=== PATIENT | female | born 1960 | race Caucasian/White ===

== ENCOUNTER 2017-03-21 01:32 | Emergency (ER) | payer OTHER ==
[2017-03-21] MEDS: ONDANSETRON 4 MG INJ IV ×2 (02:52→05:03)
[2017-03-21] MEDS: HYDROmorphONE 1 MG/ML SYG IV ×2 (02:52→05:03)
[2017-03-21] MEDS: METHYLPRED. NA SUCC 250 MG in DEXTROSE 5% 50 ML IV (03:21)
== END 2017-03-21 05:12 | disposition home or self-care (01) ==
LOC: E/R 01:32
DX: G56.02 Carpal tunnel syndrome, left upper limb (principal); I10 Essential (primary) hypertension; E11.9 Type 2 diabetes mellitus without complications; Z79.82 Long term (current) use of aspirin; Z79.84 Long term (current) use of oral hypoglycemic drugs
CPT/HCPCS: 29125; 93005; 96374; 96375; 96376; 99284-25

== ENCOUNTER 2017-04-03 18:34 | Emergency (ER) | payer OTHER ==
[2017-04-03] MEDS ORDERED: KETOROLAC 30 MG INJ (22:41)
[2017-04-03] MEDS: KETOROLAC 30 MG INJ IM (22:45)
[2017-04-03 22:46] LABS: URINE PH (Dip) POC 5.5 (5.0-8.5)
[2017-04-03 22:46] LABS: URINE BLOOD (Dip) POC Negative (NEGATIVE); URINE GLUCOSE (Dip) POC Negative (NEGATIVE); URINE KETONES (Dip) POC Trace (NEGATIVE); URINE LEUKOCYTE EST (Dip) POC Negative (NEGATIVE); URINE NITRITE (Dip) POC Negative (NEGATIVE); URINE TOTAL PROTEIN POC Negative (NEGATIVE)
== END 2017-04-04 00:13 | disposition home or self-care (01) ==
LOC: FTE 04-04 00:13
DX: G44.209 Tension-type headache, unspecified, not intractable (principal); I10 Essential (primary) hypertension; E11.9 Type 2 diabetes mellitus without complications; Z79.82 Long term (current) use of aspirin; Z79.4 Long term (current) use of insulin
CPT/HCPCS: 81003; 96372; 99284-25

== ENCOUNTER 2017-05-10 18:45 | Emergency (ER) | payer OTHER ==
[2017-05-10] MEDS: IBUPROFEN 600 MG TAB PO (23:36)
== END 2017-05-10 23:38 | disposition home or self-care (01) ==
LOC: FTE 18:45
DX: G62.9 Polyneuropathy, unspecified (principal); E11.9 Type 2 diabetes mellitus without complications; I10 Essential (primary) hypertension; Z79.4 Long term (current) use of insulin; Z79.82 Long term (current) use of aspirin
CPT/HCPCS: 82962; 99282

== ENCOUNTER 2017-06-06 19:01 | Emergency (ER) | payer OTHER | END 2017-06-06 19:47 | disposition home or self-care (01) | LOC: E/R 19:47 | DX: G62.9 Polyneuropathy, unspecified (principal); E11.9 Type 2 diabetes mellitus without complications; I10 Essential (primary) hypertension; Z79.82 Long term (current) use of aspirin; Z79.4 Long term (current) use of insulin | CPT/HCPCS: 99283; Z7502 ==

== ENCOUNTER 2017-06-09 19:58 | Emergency (ER) | payer OTHER ==
[2017-06-10] MEDS: KETOROLAC 30 MG INJ IM (00:53)
== END 2017-06-10 01:14 | disposition home or self-care (01) ==
LOC: FTE 19:58
DX: M79.641 Pain in right hand (principal); M79.642 Pain in left hand; M79.671 Pain in right foot; M79.672 Pain in left foot; I10 Essential (primary) hypertension; E11.9 Type 2 diabetes mellitus without complications; Z79.4 Long term (current) use of insulin; Z79.82 Long term (current) use of aspirin
CPT/HCPCS: 96372; 99284-25; J1885

== ENCOUNTER 2017-08-13 02:16 | Emergency (ER) | payer OTHER ==
[2017-08-13] MEDS: LORAZEPAM 2 MG INJ IV (03:33)
[2017-08-13 03:45] LABS: ADD MAN DIFF? NO
[2017-08-13 03:46] LABS: WHITE BLOOD COUNT 7.3 10^3/ul (4.8-10.8)
[2017-08-13 03:46] LABS: BASOPHILS % 0.4 % (0.0-2.0); EOSINOPHILS # 0.2 10^3/ul (0.0-0.5); HEMOGLOBIN 11.7 g/dl (12.0-16.0); LYMPHOCYTES # 1.6 10^3/ul (0.8-2.9); LYMPHOCYTES % 21.2 % (15.0-51.0); MEAN CORPUSCULAR HEMOGLOBIN 25.7 pg (29.0-33.0); MEAN CORPUSCULAR HGB CONC 32.5 g/dl (32.0-37.0); MEAN CORPUSCULAR VOLUME 79.1 fl (82.0-101.0); MEAN PLATELET VOLUME 9.4 fl (7.4-10.4); MONOCYTE # 0.5 10^3/ul (0.3-0.9); NEUTROPHIL # 5.1 10^3/ul (1.6-7.5); PLATELET COUNT 264 10^3/UL (140-415); RED BLOOD COUNT 4.55 10^6/ul (4.20-5.40); RED CELL DISTRIBUTION WIDTH 18.5 % (11.5-14.5)
[2017-08-13 04:20] LABS: ANION GAP 12 (8-16); BLOOD UREA NITROGEN 13 mg/dl (7-20); CALCIUM 9.5 mg/dl (8.4-10.2); CARBON DIOXIDE 26 mmol/L (21-31); CHLORIDE 108 mmol/L (97-110); CREATININE 0.69 mg/dl (0.44-1.00); GLUCOSE 93 mg/dl (70-220); POTASSIUM 3.7 mmol/L (3.5-5.1); SODIUM 142 mmol/L (135-144)
[2017-08-13 04:30] LABS: B-TYPE NATRIURETIC PEPTIDE 43 PG/ML (0-125)
[2017-08-13 04:34] LABS: TROPONIN-I < 0.010 ng/ml (0.000-0.120)
[2017-08-13] MEDS ORDERED: KETOROLAC 30 MG INJ IV (05:25)
== END 2017-08-13 07:26 | disposition home or self-care (01) ==
LOC: E/R 02:16
DX: M54.13 Radiculopathy, cervicothoracic region (principal); I10 Essential (primary) hypertension; E11.9 Type 2 diabetes mellitus without complications; Z79.82 Long term (current) use of aspirin; Z79.4 Long term (current) use of insulin
CPT/HCPCS: 36415; 71045; 80048; 83880; 84484; 85025; 93005; 96374; 99285-25

== ENCOUNTER 2017-09-08 00:10 | Emergency (ER) | payer OTHER ==
[2017-09-08] MEDS: IBUPROFEN 600 MG TAB PO (03:47)
== END 2017-09-08 04:20 | disposition home or self-care (01) ==
LOC: FTE 00:10
DX: T24.122A Burn of first degree of left knee, initial encounter (principal); E11.9 Type 2 diabetes mellitus without complications; I10 Essential (primary) hypertension; X10.0XXA Contact with hot drinks, initial encounter; Y92.9 Unspecified place or not applicable; Z79.4 Long term (current) use of insulin; Z79.82 Long term (current) use of aspirin
CPT/HCPCS: 99283; Z7502

== ENCOUNTER 2017-10-09 18:54 | Emergency (ER) | payer OTHER ==
[2017-10-09] MEDS: MECLIZINE 12.5 MG TAB PO (21:54)
[2017-10-09] MEDS: HYDROCODONE/APAP (5/325) TAB PO (21:54)
[2017-10-09] MEDS: ONDANSETRON 4 MG INJ IV (21:55)
[2017-10-09] MEDS: ONDANSETRON (ODT) 4 MG TAB ODT (21:56)
== END 2017-10-09 22:44 | disposition home or self-care (01) ==
LOC: E/R 18:54
DX: S93.431A Sprain of tibiofibular ligament of right ankle, initial encounter (principal); S80.01XA Contusion of right knee, initial encounter; S60.221A Contusion of right hand, initial encounter; S60.222A Contusion of left hand, initial encounter; R42 Dizziness and giddiness; I10 Essential (primary) hypertension; E11.9 Type 2 diabetes mellitus without complications; W01.0XXA Fall on same level from slipping, tripping and stumbling without subsequent striking against object, initial encounter; Y92.9 Unspecified place or not applicable; Z79.4 Long term (current) use of insulin; Z79.82 Long term (current) use of aspirin
CPT/HCPCS: 73130; 73130-LT; 73130-RT; 73562; 73610-RT; 73630; 93005; 99284-25

== ENCOUNTER 2017-12-05 12:39 | Emergency (ER) | payer OTHER ==
[2017-12-05] MEDS: KETOROLAC 30 MG INJ IM (14:25)
== END 2017-12-05 15:05 | disposition home or self-care (01) ==
LOC: FTE 12:39
DX: M25.531 Pain in right wrist (principal); E11.9 Type 2 diabetes mellitus without complications; I10 Essential (primary) hypertension; M25.532 Pain in left wrist; Z79.82 Long term (current) use of aspirin; Z79.4 Long term (current) use of insulin
CPT/HCPCS: 96372; 99284-25

== ENCOUNTER 2018-02-08 10:53 | Emergency (ER) | payer OTHER ==
[2018-02-08] MEDS: KETOROLAC 30 MG INJ IM (12:12)
== END 2018-02-08 12:23 | disposition home or self-care (01) ==
LOC: FTE 10:53
DX: M25.561 Pain in right knee (principal); M25.562 Pain in left knee; M79.641 Pain in right hand; M79.642 Pain in left hand; E11.9 Type 2 diabetes mellitus without complications; Z79.4 Long term (current) use of insulin; Z79.82 Long term (current) use of aspirin
CPT/HCPCS: 96372; 99284-25

== ENCOUNTER 2018-04-28 23:08 | Emergency (ER) | payer OTHER | END 2018-04-29 01:58 | disposition home or self-care (01) | LOC: FTE 23:08 | DX: J02.9 Acute pharyngitis, unspecified (principal); E11.9 Type 2 diabetes mellitus without complications; Z79.4 Long term (current) use of insulin; Z79.82 Long term (current) use of aspirin | CPT/HCPCS: 99283; Z7502 ==

== ENCOUNTER 2018-05-08 18:55 | Inpatient (IN) | payer OTHER ==
[2018-05-08] MEDS: SODIUM CHLORIDE 0.9% 1L BAG IV* (20:12)
[2018-05-08 20:17] LABS: ABNORMAL IP MESSAGE 1; MEAN CORPUSCULAR HGB CONC 32.4 g/dl (32.0-37.0); MEAN CORPUSCULAR VOLUME 80.3 fl (82.0-101.0); MEAN PLATELET VOLUME 8.6 fl (7.4-10.4); NUCLEATED RED BLOOD CELLS% 0.8 /100WBC (0.0-0.0); PLATELET COUNT 269 10^3/UL (140-415); RED BLOOD COUNT 4.61 10^6/ul (4.20-5.40); RED CELL DISTRIBUTION WIDTH 14.6 % (11.5-14.5)
[2018-05-08 20:17] LABS: WHITE BLOOD COUNT 2.6 10^3/ul (4.8-10.8)
[2018-05-08 20:22] LABS: ADD MAN DIFF? YES; POSITIVE DIFF @See below
[2018-05-08 20:29] LABS: ALANINE AMINOTRANSFERASE 17 IU/L (13-69); ALBUMIN 3.9 g/dl (3.3-4.9); ALBUMIN/GLOBULIN RATIO 1.14; ALKALINE PHOSPHATASE 70 IU/L (42-121); ANION GAP 13 (5-13); ASPARTATE AMINO TRANSFERASE 27 IU/L (15-46); BILIRUBIN,INDIRECT 0.2 mg/dl (0-1.1); BILIRUBIN,TOTAL 0.2 mg/dl (0.2-1.3); BLOOD UREA NITROGEN 9 mg/dl (7-20); CALCIUM 9.4 mg/dl (8.4-10.2); CARBON DIOXIDE 25 mmol/L (21-31); CHLORIDE 103 mmol/L (97-110); CREATININE 0.55 mg/dl (0.44-1.00); Estimated GFR > 60 mL/min (>60); GLUCOSE 168 mg/dl (70-220); LIPASE 38 U/L (23-300); POTASSIUM 3.8 mmol/L (3.5-5.1); SODIUM 141 mmol/L (135-144); TOTAL PROTEIN 7.3 g/dl (6.1-8.1)
[2018-05-08 20:31] LABS: ADD UMIC YES; UR ASCORBIC ACID NEGATIVE (NEGATIVE); UR BACTERIA FEW /HPF (NONE SEEN); UR BILIRUBIN (Dip) NEGATIVE (NEGATIVE); UR BLOOD (Dip) NEGATIVE (NEGATIVE); UR CLARITY CLEAR (CLEAR); UR COLOR YELLOW (YELLOW); UR GLUCOSE (Dip) NEGATIVE (NEGATIVE); UR KETONES (Dip) 2+ mg/dL (NEGATIVE); UR LEUKOCYTE ESTERASE (Dip) NEGATIVE Leu/ul (NEGATIVE); UR NITRITE (Dip) POSITIVE (NEGATIVE); UR RBC 1 /HPF (0-5); UR SPECIFIC GRAVITY (Dip) 1.016 (1.003-1.030); UR TOTAL PROTEIN (Dip) NEGATIVE (NEGATIVE); UR UROBILINOGEN (Dip) 2+ mg/dL (NEGATIVE); UR WBC 3 /HPF (0-5)
[2018-05-08 20:32] LABS: INR 1.02; PARTIAL THROMBOPLASTIN TIME 27.5 Sec (23.0-35.0); PROTIME 13.5 Sec (11.9-14.9); PT RATIO 1.1
[2018-05-08] MEDS: IBUPROFEN 600 MG TAB PO (20:33)
[2018-05-08] MEDS: CEFTRIAXONE 1 GM/50 ML (PMX) 50 ML IVPB (20:34)
[2018-05-08 20:40] LABS: TROPONIN-I < 0.012 ng/ml (0.000-0.120)
[2018-05-08 20:56] LABS: ANISOCYTOSIS 2+ (0-0); BAND NEUTROPHILS % (M) 1 % (0-4); EOSINOPHILS % (M) 3 % (0-7); ERYTHROBLAST% (NRBC) (M) 1 % (0-0); GIANT THROMBO% (M) 2 % (0-0); LYMPHOCYTES #M 1.3 10^3/ul (0.8-2.9); LYMPHOCYTES % (M) 52 % (15-51); MICROCYTOSIS 2+ (0-0); MONOCYTE #M 0.6 10^3/ul (0.3-0.9); MONOCYTES % (M) 24 % (0-11); PLATELET ESTIMATE NORMAL; POLYCHROMASIA 1+ (0-0); SEG NEUT #M 0.5 10^3/ul (1.6-7.5); SEGMENTED NEUTROPHILS (M) % 20 % (39-77); SMUDGE%M 2 % (0-0)
[2018-05-08] MEDS ORDERED: BISACODYL (EC) 5 MG TAB PO (22:30)
[2018-05-08] MEDS ORDERED: ONDANSETRON 4 MG TAB PO (22:30)
[2018-05-08] MEDS ORDERED: NACL 0.9% 3 ML SYG IV (22:30)
[2018-05-08] MEDS ORDERED: RANITIDINE 150 MG TAB PO (22:30)
[2018-05-08] MEDS ORDERED: DOCUSATE SODIUM 100 MG CAP PO (22:30)
[2018-05-08] MEDS ORDERED: GLUCAGON 1 MG INJ IM (23:00)
[2018-05-08] MEDS ORDERED: DEXTROSE 50% 50 ML SYRINGE IV ×2 (23:00)
[2018-05-08] MEDS ORDERED: GLUCOSE GEL 15 GRAM TUBE BUCCAL (23:00)
[2018-05-08] MEDS ORDERED: GLUCOSE GEL 15 GRAM TUBE PO ×2 (23:00)
[2018-05-08] MEDS: LEVOFLOXACIN 750MG/D5W (PMX) 150 ML IVPB (23:55)
[2018-05-09 00:44] LABS: LACTIC ACID 0.9 mmol/L (0.5-2.0)
[2018-05-09] MEDS: ACCU-CHEK XX (02:00)
[2018-05-09] MEDS ORDERED: LEVALBUTEROL (NEB) 1.25 MG/0.5 ML AMP HHN (03:00)
[2018-05-09] MEDS: SOD CHLORIDE 0.9% 500 ML IV (05:26)
[2018-05-09] MEDS: ACETAMINOPHEN 325 MG TAB PO ×2 (05:40→12:06)
[2018-05-09 06:25] LABS: ABNORMAL IP MESSAGE 1; HEMATOCRIT 29.7 % (37.0-47.0); HEMOGLOBIN 9.7 g/dl (12.0-16.0); MEAN CORPUSCULAR HEMOGLOBIN 26.4 pg (29.0-33.0); MEAN CORPUSCULAR HGB CONC 32.7 g/dl (32.0-37.0); MEAN CORPUSCULAR VOLUME 80.9 fl (82.0-101.0); MEAN PLATELET VOLUME 9.1 fl (7.4-10.4); PLATELET COUNT 253 10^3/UL (140-415); RED BLOOD COUNT 3.67 10^6/ul (4.20-5.40); RED CELL DISTRIBUTION WIDTH 14.3 % (11.5-14.5)
[2018-05-09 06:25] LABS: WHITE BLOOD COUNT 3.2 10^3/ul (4.8-10.8)
[2018-05-09 06:41] LABS: POSITIVE DIFF @See below
[2018-05-09 06:42] LABS: ADD MAN DIFF? YES
[2018-05-09 06:49] LABS: HEMOGLOBIN A1C 7.1 % (0-5.9)
[2018-05-09 06:53] LABS: ALANINE AMINOTRANSFERASE 22 IU/L (13-69); ALBUMIN 2.8 g/dl (3.3-4.9); ALKALINE PHOSPHATASE 55 IU/L (42-121); ANION GAP 8 (5-13); ASPARTATE AMINO TRANSFERASE 17 IU/L (15-46); BILIRUBIN,INDIRECT 0.1 mg/dl (0-1.1); BILIRUBIN,TOTAL 0.1 mg/dl (0.2-1.3); BLOOD UREA NITROGEN 6 mg/dl (7-20); CALCIUM 8.1 mg/dl (8.4-10.2); CARBON DIOXIDE 24 mmol/L (21-31); CHLORIDE 109 mmol/L (97-110); CHOL/HDL RATIO 3.1 RATIO; CHOLESTEROL 73 mg/dl (100-200); CREATININE 0.56 mg/dl (0.44-1.00); Estimated GFR > 60 mL/min (>60); GLUCOSE 134 mg/dl (70-220); HDL CHOLESTEROL 23 mg/dl (35-98); LDL CHOLESTEROL,CALCULATED 38 mg/dl; MAGNESIUM 1.7 mg/dl (1.7-2.5); POTASSIUM 3.9 mmol/L (3.5-5.1); SODIUM 141 mmol/L (135-144); TOTAL PROTEIN 5.6 g/dl (6.1-8.1); TRIGLYCERIDES 58 mg/dl (0-149)
[2018-05-09] MEDS: INSULIN ASPART [NOVOLOG] 3 ML PEN SC ×4 (08:00→20:38)
[2018-05-09] MEDS: NPH, HUMAN INSULIN ISOPHANE 3ML VIAL SC ×2 (08:49→20:41)
[2018-05-09] MEDS: OLOPATADINE 0.1% 5 ML OPH BOTH EYES ×2 (08:54→20:42)
[2018-05-09] MEDS: ASPIRIN (EC) 81 MG TAB PO (08:54)
[2018-05-09 09:27] LABS: ANISOCYTOSIS 2+ (0-0); BAND NEUTROPHILS #M 0.4 10^3/ul (0.0-0.6); BAND NEUTROPHILS % (M) 14 % (0-4); BURR CELLS 1+ (0-0); EOSINOPHILS % (M) 6 % (0-7); GIANT THROMBO% (M) 2 % (0-0); LYMPHOCYTES #M 1.1 10^3/ul (0.8-2.9); LYMPHOCYTES % (M) 35 % (15-51); METAMYELOCYTES %M 1 % (0-0); MICROCYTOSIS 2+ (0-0); MONOCYTE #M 0.6 10^3/ul (0.3-0.9); MONOCYTES % (M) 19 % (0-11); OVALOCYTES 1+ (0-0); PLATELET ESTIMATE NORMAL; POIKILOCYTOSIS 1+ (0-0); POLYCHROMASIA 3+ (0-0); REACTIVE LYMPHOCYTES #M 0.1 10^3/ul (0.0-0.0); REACTIVE LYMPHOCYTES% (M) 4 % (0-0); SEG NEUT #M 0.7 10^3/ul (1.6-7.5); SEGMENTED NEUTROPHILS (M) % 21 % (39-77); SMUDGE%M 5 % (0-0)
[2018-05-09] MEDS: CEPASTAT LOZENGE MT (17:05)
[2018-05-09] MEDS ORDERED: ATORVASTATIN 10 MG TAB (19:50)
[2018-05-09] MEDS: ATORVASTATIN 10 MG TAB PO (20:42)
[2018-05-09] MEDS ORDERED: NON-FORMULARY/PATIENT OWN MED (Simvastatin 20 MG) PO (21:00)
[2018-05-09] MEDS: HYDROCODONE/APAP (5/325) TAB PO (21:07)
[2018-05-09] MEDS: IOHEXOL 300MG/ML 150 ML BTL (21:19)
[2018-05-09] MEDS: SOD CHLORIDE 0.9% 100 ML (21:19)
[2018-05-09] MEDS: LEVOFLOXACIN 750MG/D5W (PMX) 150 ML IVPB (21:44)
[2018-05-09] MEDS: traMADol 50 MG TAB PO (23:46)
[2018-05-10] MEDS: ACCU-CHEK XX (03:00)
[2018-05-10] MEDS: traMADol 50 MG TAB PO ×2 (05:16→12:13)
[2018-05-10 06:06] LABS: WHITE BLOOD COUNT 3.8 10^3/ul (4.8-10.8)
[2018-05-10 06:06] LABS: ABNORMAL IP MESSAGE 1; HEMATOCRIT 29.2 % (37.0-47.0); HEMOGLOBIN 9.6 g/dl (12.0-16.0); MEAN CORPUSCULAR HEMOGLOBIN 26.6 pg (29.0-33.0); MEAN CORPUSCULAR HGB CONC 32.9 g/dl (32.0-37.0); MEAN CORPUSCULAR VOLUME 80.9 fl (82.0-101.0); MEAN PLATELET VOLUME 9.1 fl (7.4-10.4); PLATELET COUNT 375 10^3/UL (140-415); RED BLOOD COUNT 3.61 10^6/ul (4.20-5.40); RED CELL DISTRIBUTION WIDTH 14.5 % (11.5-14.5)
[2018-05-10 06:10] LABS: ADD MAN DIFF? YES; POSITIVE DIFF @See below
[2018-05-10 06:43] LABS: MAGNESIUM 1.8 mg/dl (1.7-2.5)
[2018-05-10 06:43] LABS: PHOSPHORUS 3.7 mg/dl (2.5-4.9)
[2018-05-10 07:14] LABS: ANION GAP 9 (5-13); BLOOD UREA NITROGEN 6 mg/dl (7-20); CALCIUM 8.7 mg/dl (8.4-10.2); CARBON DIOXIDE 24 mmol/L (21-31); CHLORIDE 109 mmol/L (97-110); CREATININE 0.52 mg/dl (0.44-1.00); Estimated GFR > 60 mL/min (>60); GLUCOSE 66 mg/dl (70-220); POTASSIUM 3.4 mmol/L (3.5-5.1); SODIUM 142 mmol/L (135-144)
[2018-05-10] MEDS: INSULIN ASPART [NOVOLOG] 3 ML PEN SC ×3 (08:00→17:37)
[2018-05-10 08:06] LABS: ANISOCYTOSIS 1+ (0-0); BAND NEUTROPHILS % (M) 1 % (0-4); EOSINOPHILS % (M) 7 % (0-7); GIANT THROMBO% (M) 1 % (0-0); LYMPHOCYTES #M 1.9 10^3/ul (0.8-2.9); LYMPHOCYTES % (M) 52 % (15-51); MICROCYTOSIS 1+ (0-0); MONOCYTE #M 0.6 10^3/ul (0.3-0.9); MONOCYTES % (M) 16 % (0-11); PLATELET ESTIMATE NORMAL; POLYCHROMASIA 2+ (0-0); SEG NEUT #M 0.9 10^3/ul (1.6-7.5); SEGMENTED NEUTROPHILS (M) % 24 % (39-77); SMUDGE%M 35 % (0-0)
[2018-05-10] MEDS: NPH, HUMAN INSULIN ISOPHANE 3ML VIAL SC (08:12)
[2018-05-10] MEDS: ENOXAPARIN 40 MG/0.4 ML SYG SC (08:52)
[2018-05-10] MEDS: ASPIRIN (EC) 81 MG TAB PO (08:52)
[2018-05-10] MEDS: OLOPATADINE 0.1% 5 ML OPH BOTH EYES (08:52)
[2018-05-10] MEDS: POTASSIUM CHLORIDE (SR) 10 MEQ TAB PO (18:08)
[2018-05-10] MEDS ORDERED: MAGNESIUM SULFATE 2 GM/50 ML 50 ML IVPB (19:00)
[2018-05-10] MEDS ORDERED: AMOXICILLIN 500 MG CAP PO (22:00)
== END 2018-05-10 18:44 | disposition home or self-care (01) | DRG 871 ==
LOC: E/R 18:55 → PP2 21:33
PROVIDERS: Family Medicine
DX: A41.9 Sepsis, unspecified organism (principal); J18.9 Pneumonia, unspecified organism; N39.0 Urinary tract infection, site not specified; E11.9 Type 2 diabetes mellitus without complications; E78.5 Hyperlipidemia, unspecified; B96.20 Unspecified Escherichia coli [E. coli] as the cause of diseases classified elsewhere; E66.9 Obesity, unspecified; E86.0 Dehydration; I10 Essential (primary) hypertension; Y95 Nosocomial condition; J01.90 Acute sinusitis, unspecified; R50.9 Fever, unspecified; Z68.35 Body mass index [BMI] 35.0-35.9, adult; Z71.3 Dietary counseling and surveillance
CPT/HCPCS: 36415; 70486; 71045; 80048; 80053; 80061; 81001; 82962; 83036; 83605; 83690; 83735; 84100; 84443; 84484; 85025; 85610; 85730; 87040; 87086; 87400; 87880; 93005; 96374; 99285-25

== ENCOUNTER 2018-06-18 19:13 | Emergency (ER) | payer OTHER ==
[2018-06-18 20:10] LABS: ADD MAN DIFF? NO
[2018-06-18] MEDS: ONDANSETRON 4 MG INJ IV (20:12)
[2018-06-18 20:13] LABS: WHITE BLOOD COUNT 5.5 10^3/ul (4.8-10.8)
[2018-06-18 20:13] LABS: BASOPHILS % 0.7 % (0.0-2.0); EOSINOPHILS # 0.3 10^3/ul (0.0-0.5); EOSINOPHILS % 4.7 % (0.0-7.0); HEMATOCRIT 31.9 % (37.0-47.0); HEMOGLOBIN 10.3 g/dl (12.0-16.0); LYMPHOCYTES % 17.9 % (15.0-51.0); MEAN CORPUSCULAR HEMOGLOBIN 27.9 pg (29.0-33.0); MEAN CORPUSCULAR HGB CONC 32.3 g/dl (32.0-37.0); MEAN CORPUSCULAR VOLUME 86.4 fl (82.0-101.0); MEAN PLATELET VOLUME 9.4 fl (7.4-10.4); MONOCYTE # 0.4 10^3/ul (0.3-0.9); MONOCYTES % 7.8 % (0.0-11.0); NEUTROPHIL # 3.8 10^3/ul (1.6-7.5); NEUTROPHILS % 68.7 % (39.0-77.0); PLATELET COUNT 285 10^3/UL (140-415); RED BLOOD COUNT 3.69 10^6/ul (4.20-5.40); RED CELL DISTRIBUTION WIDTH 20.2 % (11.5-14.5)
[2018-06-18] MEDS: morphine 4 MG/ML VIAL IV (20:13)
[2018-06-18 21:19] LABS: ANION GAP 10 (5-13); BLOOD UREA NITROGEN 11 mg/dl (7-20); CALCIUM 9.2 mg/dl (8.4-10.2); CARBON DIOXIDE 23 mmol/L (21-31); CHLORIDE 108 mmol/L (97-110); CREATININE 0.53 mg/dl (0.44-1.00); Estimated GFR > 60 mL/min (>60); GLUCOSE 152 mg/dl (70-220); POTASSIUM 3.7 mmol/L (3.5-5.1); SODIUM 141 mmol/L (135-144)
[2018-06-18 21:28] LABS: TROPONIN-I < 0.012 ng/ml (0.000-0.120)
== END 2018-06-18 22:12 | disposition home or self-care (01) ==
LOC: E/R 19:13
DX: E11.21 Type 2 diabetes mellitus with diabetic nephropathy (principal); R07.89 Other chest pain; Z79.4 Long term (current) use of insulin; Z79.82 Long term (current) use of aspirin
CPT/HCPCS: 36415; 71045; 80048; 84484; 85025; 93005; 96374; 96375; 99285-25

== ENCOUNTER 2018-06-19 20:37 | Emergency (ER) | payer OTHER ==
[2018-06-19 23:03] LABS: ADD MAN DIFF? NO
[2018-06-19 23:07] LABS: WHITE BLOOD COUNT 6.4 10^3/ul (4.8-10.8)
[2018-06-19 23:07] LABS: BASOPHILS % 0.3 % (0.0-2.0); EOSINOPHILS # 0.2 10^3/ul (0.0-0.5); EOSINOPHILS % 3.3 % (0.0-7.0); HEMATOCRIT 33.4 % (37.0-47.0); HEMOGLOBIN 10.9 g/dl (12.0-16.0); LYMPHOCYTES # 0.9 10^3/ul (0.8-2.9); LYMPHOCYTES % 14.1 % (15.0-51.0); MEAN CORPUSCULAR HGB CONC 32.6 g/dl (32.0-37.0); MEAN CORPUSCULAR VOLUME 85.9 fl (82.0-101.0); MEAN PLATELET VOLUME 8.6 fl (7.4-10.4); MONOCYTE # 0.5 10^3/ul (0.3-0.9); MONOCYTES % 7.9 % (0.0-11.0); NEUTROPHIL # 4.8 10^3/ul (1.6-7.5); NEUTROPHILS % 74.1 % (39.0-77.0); PLATELET COUNT 298 10^3/UL (140-415); RED BLOOD COUNT 3.89 10^6/ul (4.20-5.40); RED CELL DISTRIBUTION WIDTH 19.7 % (11.5-14.5)
[2018-06-19 23:24] LABS: ANION GAP 10 (5-13); BLOOD UREA NITROGEN 11 mg/dl (7-20); CALCIUM 9.7 mg/dl (8.4-10.2); CARBON DIOXIDE 23 mmol/L (21-31); CHLORIDE 105 mmol/L (97-110); CREATININE 0.59 mg/dl (0.44-1.00); Estimated GFR > 60 mL/min (>60); GLUCOSE 191 mg/dl (70-220); POTASSIUM 4.2 mmol/L (3.5-5.1); SODIUM 138 mmol/L (135-144)
[2018-06-19 23:32] LABS: B-TYPE NATRIURETIC PEPTIDE 105 PG/ML (0-125)
[2018-06-19 23:37] LABS: TROPONIN-I < 0.012 ng/ml (0.000-0.120)
[2018-06-20] MEDS: DIAZEPAM 2 MG TAB PO (00:05)
[2018-06-20] MEDS: KETOROLAC 15 MG INJ IV (00:10)
[2018-06-20] MEDS: DIAZEPAM 5 MG/ML SYG IV (00:38)
== END 2018-06-20 01:57 | disposition home or self-care (01) ==
LOC: E/R 06-20 01:57
DX: R07.2 Precordial pain (principal); F41.9 Anxiety disorder, unspecified; R00.2 Palpitations; D64.9 Anemia, unspecified; E11.40 Type 2 diabetes mellitus with diabetic neuropathy, unspecified; I10 Essential (primary) hypertension; Z79.4 Long term (current) use of insulin; Z79.82 Long term (current) use of aspirin
CPT/HCPCS: 36415; 71045; 80048; 83880; 84484; 85025; 93005; 96374; 96375; 99285-25

== ENCOUNTER 2018-09-26 12:21 | Emergency (ER) | payer OTHER ==
[2018-09-26] MEDS: HYDROCODONE/APAP (5/325) TAB PO (13:26)
== END 2018-09-26 13:49 | disposition home or self-care (01) ==
LOC: FTE 13:49
DX: M06.9 Rheumatoid arthritis, unspecified (principal); I10 Essential (primary) hypertension; E10.49 Type 1 diabetes mellitus with other diabetic neurological complication; Z79.4 Long term (current) use of insulin; Z79.82 Long term (current) use of aspirin
CPT/HCPCS: 99283; Z7502